=== PATIENT | female | born 1955 | race Hispanic/Latino ===

== ENCOUNTER 2016-06-22 15:07 | Emergency (ER) | payer OTHER ==
[~2016-06-22] VITALS: Ht 152.4 cm; Wt 90.7 kg
[~2016-06-22 15:07] MED LIST: BENADRYL 50 MG50 MG PO; PREDNISONE 20MG20 MG PO
--- NOTE | 2016-06-22 16:19 | ED EAR COMPLAINT ---
History of Present Illness General Chief Complaint: Ear Complaints Stated Complaint: DIZZY, BUZZING IN EAR Source: patient Exam Limitations: no limitations Vital Signs & Intake/Output Vital Signs & Intake/Output Vital Signs Date Time Temp Pulse Resp B/P Pulse O2 O2 Flow FiO2 Ox Delivery Rate 06/22 1621 99 Room Air 06/22 1517 97.5 71 20 151/82 98 Room Air Allergies Coded Allergies: NO KNOWN ALLERGIES (12/13/13) Reconcile Medications Diphenhydramine HCl (Benadryl) 50 MG CAPSULE 1 TAB PO Q6 PRN PRURITIS Prednisone 20 MG TABLET 1 TAB PO BID POISON GERBER START TONIGHT Triage Note: PT TO ED C/O SUDDEN ONSET OF "BUZZING" IN LEFT EAR 1 HOUR AGO. STATES IT COMES AND GOES, BUT WHEN ITS THERE, SHE GETS DIZZY. DENIES PAIN. Triage Nurses Notes Reviewed? yes HPI: Patient presents for evaluation of intermittent severe episodes of dizziness associated with buzzing in the left ear that began over the past hour or 2. Patient had a particularly severe episode while using the toilet. She began to feel faint and appeared pale. The patient denies any associated hearing loss or preceding trauma. Nothing seems to make the symptoms better or worse, episodes seem to occur without provocation. Patient denies pulsatile tinnitus. She denies trauma. Past History Travel History Traveled to [place] past 21 day No Medical History Any Pertinent Medical History? see below for history Cardiovascular: hypertension Surgical History Surgical History: spinal fusion Psychosocial History What is your primary language Arabic Tobacco Use: Never used ETOH Use: occasional use Illicit Drug Use: denies illicit drug use Family History Hx Contributory? No Review of Systems Review of Systems Constitutional: Reports: no symptoms. EENTM: Reports: see HPI. Respiratory: Reports: no symptoms. Cardiovascular: Reports: no symptoms. GI: Reports: no symptoms. Genitourinary: Reports: no symptoms. Musculoskeletal: Reports: no symptoms. Skin: Reports: no symptoms. Neurological/Psychological: Reports: no symptoms. Hematologic/Endocrine: Reports: no symptoms. Immunologic/Allergic: Reports: no symptoms. All Other Systems: Reviewed and Negative Physical Exam Physical Exam Ears: Left: canal normal, Tympanic normal. Comments: Gen.: Well-nourished, well-developed, no acute respiratory distress. Head: Normocephalic, atraumatic. Eyes: Normal inspection bilaterally, PERRLA, EOMI, negative Hallpike Ears: Normal inspection bilaterally Nose: Normal inspection Throat/mouth : Moist mucosa Neck: Supple, full range of motion, no goiter, equal carotid pulses, no carotid bruits Heart: Regular rate and rhythm, no murmurs rubs or gallops Lungs: Clear to auscultation bilaterally with normal air entry Chest: Nontender Back: Normal range of motion Abdomen: Soft, nontender, nondistended, normal bowel sounds Extremities: Normal range of motion grossly, equal radial pulses, no cyanosis clubbing or edema Neurologic: Cranial 2 through 12 intact, speech is clear, no dysmetria Skin: warm and dry Psychiatric: Calm, cooperative, no apparent delusions or hallucinations Progress Differential Diagnoses I considered the following diagnoses in my evaluation of the patient: Vertigo, M neuronitis Plan of Care: Current Medications Sig/Aram Start time Last Medication Dose Stop Time Status Admin Meclizine HCl 25 MG ONCE ONE 06/22 1630 AC (Antivert) 06/22 1631 See discharge instructions (AMOR MUNGUIA,ENIO Barragan) Initial ED EKG: none Comments: 06/22/2016 4:22:12 PM patient's case discussed with Dr. Bowles, who feels the patient is likely suffering from labyrinthitis. She recommends treatment with a Medrol Dosepak, Famvir or acyclovir and Antivert if needed. Departure Departure Disposition: HOME OR SELF CARE Condition: Stable Clinical Impression Primary Impression: Labyrinthitis, left ear Referrals: JIMMY MUNGUIA,VERONIQUE (PCP/Family) Additional Instructions: Famvir and Medrol Dosepak as prescribed. Antivert as needed for dizziness. Follow-up with Dr. Bowles on Saturday. Notify your primary care doctor of this emergency department visit and treatment plan. Return if any concerns or sudden worsening. Thank you for choosing the [facility] for your care. It was a pleasure to serve you today. Enio Centeno M.D. [facility] Departure Forms: Customer Survey General Discharge Information Prescriptions: Current Visit Scripts Famciclovir (Famvir) 1 TAB PO TID #21 TAB Methylprednisolone. (Medrol) 1 DP PO AD #1 DP 6 on day 1 then reduce by one tablet daily until gone Meclizine HCl 1 TAB PO Q6P #40 TAB
[2016-06-22] MEDS ORDERED: MEDROL4 M2 PO (16:26)
[2016-06-22] MEDS ORDERED: MECLIZINE HCL25 MG PO (16:26)
[2016-06-22] MEDS ORDERED: FAMVIR250 MG PO (16:26)
[2016-06-22 16:40] VITALS: BP 140/79
== END 2016-06-22 16:41 ==
LOC: ERH 15:07
DX: H83.02 Labyrinthitis, left ear (principal)